=== PATIENT | female | born 1995 | race African-American/Black ===

== ENCOUNTER 2017-11-23 22:11 | Emergency (ER) | payer MEDICAID ==
[~2017-11-23] VITALS: Ht 170.2 cm; Wt 54.4 kg
[2017-11-23 23:28] LABS: Hematocrit 37.7 % (36.0-46.0); Hemoglobin 12.7 g/dL (12.2-16.2); Mean Corpuscular Hemoglobin 28.3 pg (28.0-32.0); Mean Corpuscular Hgb Conc. 33.6 g/dL (32.0-36.0); Mean Corpuscular Volume 84.4 fL (80.0-100.0); Platelet Count (auto) 261 10^3/uL (140-450); Red Blood Cells 4.47 10^6/uL (4.0-5.20); Red Cell Distribution Width 15.3 % (11.8-14.3); White Blood Cell 4.1 10^3/uL (4.4-10.8)
[2017-11-23 23:34] LABS: Band Neutrophils % (manual) 0; Basophils % (manual) 0 (0.0-2.0); Metamyelocytes % 0
[2017-11-23 23:35] LABS: Blast Cells 0; Myelocytes % 0; Promyelocytes % 0
[2017-11-23 23:41] LABS: Potassium 4.2 mmol/L (3.5-5.1)
[2017-11-23 23:46] LABS: Albumin 3.7 g/dL (3.4-5.0); BUN/Creatinine Ratio 18.2; Bilirubin, Total 0.2 mg/dL (0.2-1.0); Calcium 8.6 mg/dL (8.5-10.1); Total Protein 6.9 g/dL (6.4-8.2)
[2017-11-24 00:27] LABS: Eosinophils % (manual) 1 (0-7); Lymphocytes % (manual) 65 (10.0-50.0); Monocytes % (manual) 6 (0-12); Reactive Lymphocytes 4
[2017-11-24] MEDS ORDERED: IBUPROFEN 600 MG TAB PO ONE (02:30)
[2017-11-24] MEDS ORDERED: SODIUM CHLORIDE 0.9% 1,000 ML IV ONE (04:45)
[2017-11-24 06:32] VITALS: BP 105/66
[2017-11-24 08:44] LABS: Urine Bacteria NONE SEEN /hpf (None Seen); Urine Blood Negative /uL (Negative); Urine Specific Gravity 1.008 (1.001-1.035); Urine WBC 3 /hpf (0 - 5)
[2017-11-24 09:07] LABS: Alcohol, Urine < 3.0 mg/dL (0-5); Amphetamine Screen, Urine NEGATIVE (NEGATIVE); Barbiturate Scree,Urine NEGATIVE (NEGATIVE); Benzodiazephine Screen, Urine NEGATIVE (NEGATIVE); Cannabinoid Screen, Urine POSITIVE (NEGATIVE); Cocaine Screen, Urine NEGATIVE (NEGATIVE); Opiate Scree,Urine NEGATIVE (NEGATIVE); Phencyclidine Screen, Urine NEGATIVE (NEGATIVE)
== END 2017-11-24 09:49 | disposition home or self-care (01) ==
LOC: EDUNIT# 22:11 → EDBD 22:11 → ER 22:17
DX: R55 Syncope and collapse (principal); R42 Dizziness and giddiness
CPT/HCPCS: 36415; 70450; 80053; 80307; 81001; 82962; 84484; 84702; 85007; 85027; 93005; 96360